=== PATIENT | female | born 1950 | race Caucasian/White ===

== ENCOUNTER 2017-01-18 00:21 | Emergency (ER) | payer MEDICARE, OTHER ==
[~2017-01-18] VITALS: Ht 157.5 cm; Wt 127.3 kg
[2017-01-18] MEDS ORDERED: AMLO5TAB66 PO (00:38)
[2017-01-18] MEDS ORDERED: HYDR25TA PO (00:38)
[2017-01-18] MEDS ORDERED: METF500T4 PO (00:38)
[2017-01-18] MEDS ORDERED: ATOR40TA71 PO (00:38)
[2017-01-18] MEDS ORDERED: BUSP10TA23 PO (00:38)
[2017-01-18] MEDS ORDERED: LISI-618 PO (00:38)
[2017-01-18] MEDS ORDERED: ASPI81 PO (00:38)
[2017-01-18 00:39] LABS: GLUCOSE,POINT OF CARE 197 MG/DL (70-110)
[2017-01-18] MEDS ORDERED: CYCLOBENZAPRINE HCL 10 MG TABLET PO ONE (01:00)
[2017-01-18] MEDS ORDERED: HYDROCODONE/ACETAMINOPHEN 5-325 MG TABLET PO ONE (01:00)
[2017-01-18] MEDS ORDERED: KETOROLAC TROMETHAMINE 60 MG/2 ML VIAL IM ONE (01:00)
[2017-01-18 02:12] VITALS: BP 133/81
== END 2017-01-18 02:18 | disposition home or self-care (01) ==
LOC: EMS 00:24
DX: M54.5 Low back pain (principal); M46.1 Sacroiliitis, not elsewhere classified; E66.01 Morbid (severe) obesity due to excess calories; E11.9 Type 2 diabetes mellitus without complications; E78.00 Pure hypercholesterolemia, unspecified; F17.210 Nicotine dependence, cigarettes, uncomplicated; I10 Essential (primary) hypertension; Z68.43 Body mass index [BMI] 50.0-59.9, adult; Z79.82 Long term (current) use of aspirin
CPT/HCPCS: 82962; 96372; 99283; 99406; J1885